=== PATIENT | male | born 1955 | race Caucasian/White ===

== ENCOUNTER 2017-09-22 15:06 | Inpatient (IN) | payer BC ==
[2017-09-22 16:33] LABS: ADD MAN DIFF? NO
[2017-09-22 16:34] LABS: BASO # 0.1 x10^3/uL (0.0-0.2); BASO % 1 % (0-3); EOS # 0.1 x10^3/uL (0.0-0.7); EOS % 2 % (0-3); HEMATOCRIT 37.8 % (39.0-53.0); LYMPH # 2.3 x10^3/uL (1.0-4.8); LYMPH % 39 % (24-48); MEAN CORPUSCULAR HEMOGLOBIN 37 pg (25-35); MEAN CORPUSCULAR HGB CONC 34 g/dL (31-37); MEAN CORPUSCULAR VOLUME 108 fL (79-100); MONO # 0.8 x10^3/uL (0.0-1.1); MONO % 14 % (0-9); NEUT # 2.6 x10^3uL (1.8-7.7); NEUT % 44 % (31-73); PLATELET COUNT 112 x10^3/uL (140-400); RED BLOOD COUNT 3.49 x10^6/uL (4.30-5.70); RED CELL DISTRIBUTION WIDTH 15.9 % (11.5-14.5); WHITE BLOOD COUNT 5.9 x10^3/uL (4.0-11.0)
[2017-09-22 16:49] LABS: ETHANOL < 10 mg/dL (0-10)
[2017-09-22 16:50] LABS: ALBUMIN 2.3 g/dL (3.4-5.0); ALBUMIN/GLOBULIN RATIO 0.4 (1.0-1.7); ALK PHOS 131 U/L (46-116); ALT (SGPT) 17 U/L (16-63); ANION GAP 10 (6-14); AST (SGOT) 60 U/L (15-37); BLOOD UREA NITROGEN 11 mg/dL (8-26); BUN/CREATININE RATIO 8 (6-20); CALCIUM 8.4 mg/dL (8.5-10.1); CARBON DIOXIDE 35 mmol/L (21-32); CHLORIDE 94 mmol/L (98-107); CREATININE 1.4 mg/dL (0.7-1.3); GFR 51.4; GLUCOSE 92 mg/dL (70-99); SODIUM 139 mmol/L (136-145); TOTAL BILIRUBIN 4.2 mg/dL (0.2-1.0); TOTAL PROTEIN 7.8 g/dL (6.4-8.2)
[2017-09-22 16:57] LABS: POTASSIUM 2.3 mmol/L (3.5-5.1)
[2017-09-22 16:58] LABS: AMMONIA < 10 mcmol/L (11-34)
[2017-09-22 17:02] LABS: INR 1.4 (0.8-1.1); PROTHROMBIN TIME PATIENT 16.5 SEC (11.7-14.0)
[2017-09-22 17:26] LABS: LACTIC ACID 4.7 mmol/L (0.4-2.0)
[2017-09-22] MEDS: SPIRONOLACTONE 25 MG TABLET PO (17:45)
[2017-09-22] MEDS: POTASSIUM CHLORIDE 20 MEQ TABLET.ER. PO ×2 (18:08→20:55)
[2017-09-22] MEDS: FUROSEMIDE 40 MG/4 ML VIAL. IVP (18:09)
[2017-09-22] MEDS: MORPHINE SULFATE 4 MG/ML DISP.SYRIN. IV ×2 (18:10→20:56)
[2017-09-23] MEDS: MORPHINE SULFATE 4 MG/ML DISP.SYRIN. IV ×3 (04:34→15:00)
[2017-09-23 05:15] LABS: ADD MAN DIFF? NO
[2017-09-23 05:37] LABS: BASO % 1 % (0-3); EOS # 0.3 x10^3/uL (0.0-0.7); EOS % 6 % (0-3); HEMATOCRIT 32.5 % (39.0-53.0); HEMOGLOBIN 10.9 g/dL (13.0-17.5); LYMPH # 2.1 x10^3/uL (1.0-4.8); LYMPH % 51 % (24-48); MEAN CORPUSCULAR HEMOGLOBIN 36 pg (25-35); MEAN CORPUSCULAR HGB CONC 34 g/dL (31-37); MEAN CORPUSCULAR VOLUME 108 fL (79-100); MONO # 0.6 x10^3/uL (0.0-1.1); MONO % 15 % (0-9); NEUT # 1.1 x10^3uL (1.8-7.7); NEUT % 28 % (31-73); PLATELET COUNT 80 x10^3/uL (140-400); RED BLOOD COUNT 3.01 x10^6/uL (4.30-5.70); RED CELL DISTRIBUTION WIDTH 16.1 % (11.5-14.5); WHITE BLOOD COUNT 4.2 x10^3/uL (4.0-11.0)
[2017-09-23 06:00] LABS: ALBUMIN 1.6 g/dL (3.4-5.0); ALBUMIN/GLOBULIN RATIO 0.4 (1.0-1.7); ALK PHOS 97 U/L (46-116); ALT (SGPT) 15 U/L (16-63); ANION GAP 5 (6-14); AST (SGOT) 43 U/L (15-37); BLOOD UREA NITROGEN 9 mg/dL (8-26); BUN/CREATININE RATIO 7 (6-20); CALCIUM 7.8 mg/dL (8.5-10.1); CARBON DIOXIDE 38 mmol/L (21-32); CHLORIDE 99 mmol/L (98-107); CREATININE 1.3 mg/dL (0.7-1.3); GFR 55.9; GLUCOSE 83 mg/dL (70-99); SODIUM 142 mmol/L (136-145); TOTAL BILIRUBIN 3.2 mg/dL (0.2-1.0)
[2017-09-23 06:02] LABS: POTASSIUM 2.8 mmol/L (3.5-5.1)
[2017-09-23 08:52] LABS: MAGNESIUM 1.9 mg/dL (1.8-2.4)
[2017-09-23] MEDS: POTASSIUM CHLORIDE 20 MEQ TABLET.ER. PO (09:01)
[2017-09-23] MEDS: FUROSEMIDE 40 MG/4 ML VIAL. IVP (09:02)
[2017-09-23] MEDS: SPIRONOLACTONE 25 MG TABLET PO (09:06)
[2017-09-23] MEDS ORDERED: LIDOCAINE WITH 8.4% SOD BICARB 3 ML DISP.SYRIN. IJ (11:20)
[2017-09-23] MEDS: LIDOCAINE WITH 8.4% SOD BICARB 3 ML DISP.SYRIN. IJ (11:42)
[2017-09-23] MEDS ORDERED: ALBUMIN HUMAN 25% 100 ML IV (12:09)
[2017-09-23] MEDS: ALBUMIN HUMAN 25% 100 ML IV (12:26)
[2017-09-23 13:33] LABS: BF CLARITY CLEAR; BF COLOR YELLOW; BF MON % 6 %; BF PMN % 17 %; BF RBC COUNT 100 /cmm; BF SOURCE ASCITES; BF WBC COUNT 116 /cmm
[2017-09-23 13:34] LABS: BF OTHER % 68 %
[2017-09-24 01:10] LABS: AFPT MARKER 4.4 ng/mL (0.0-8.3)
[2017-09-24] MEDS: MORPHINE SULFATE 4 MG/ML DISP.SYRIN. IV ×3 (06:35→23:49)
[2017-09-24 10:09] LABS: ADD MAN DIFF? NO
[2017-09-24 10:10] LABS: BASO # 0.1 x10^3/uL (0.0-0.2); BASO % 1 % (0-3); EOS # 0.2 x10^3/uL (0.0-0.7); EOS % 5 % (0-3); HEMOGLOBIN 10.9 g/dL (13.0-17.5); LYMPH # 1.6 x10^3/uL (1.0-4.8); LYMPH % 42 % (24-48); MEAN CORPUSCULAR HEMOGLOBIN 37 pg (25-35); MEAN CORPUSCULAR HGB CONC 34 g/dL (31-37); MEAN CORPUSCULAR VOLUME 110 fL (79-100); MONO # 0.5 x10^3/uL (0.0-1.1); MONO % 12 % (0-9); NEUT # 1.5 x10^3uL (1.8-7.7); NEUT % 39 % (31-73); PLATELET COUNT 72 x10^3/uL (140-400); RED BLOOD COUNT 2.92 x10^6/uL (4.30-5.70); WHITE BLOOD COUNT 3.8 x10^3/uL (4.0-11.0)
[2017-09-24] MEDS: FUROSEMIDE 40 MG/4 ML VIAL. IVP (10:26)
[2017-09-24] MEDS: SPIRONOLACTONE 25 MG TABLET PO (10:26)
[2017-09-24 10:29] LABS: ALBUMIN 1.9 g/dL (3.4-5.0); ALK PHOS 99 U/L (46-116); ALT (SGPT) 15 U/L (16-63); ANION GAP 4 (6-14); AST (SGOT) 41 U/L (15-37); BLOOD UREA NITROGEN 8 mg/dL (8-26); CALCIUM 7.5 mg/dL (8.5-10.1); CARBON DIOXIDE 38 mmol/L (21-32); CHLORIDE 99 mmol/L (98-107); CREATININE 1.1 mg/dL (0.7-1.3); DIRECT BILIRUBIN 1.8 mg/dL (0.0-0.2); GFR 67.8; GLUCOSE 97 mg/dL (70-99); MAGNESIUM 1.8 mg/dL (1.8-2.4); POTASSIUM 3.2 mmol/L (3.5-5.1); SODIUM 141 mmol/L (136-145); TOTAL BILIRUBIN 3.5 mg/dL (0.2-1.0); TOTAL PROTEIN 6.1 g/dL (6.4-8.2)
[2017-09-24] MEDS: POTASSIUM CHLORIDE 20 MEQ TABLET.ER. PO (11:50)
[2017-09-24 18:12] LABS: BODY FLUID GLUCOSE 95 mg/dL (.)
[2017-09-25] MEDS: SPIRONOLACTONE 25 MG TABLET PO (08:38)
[2017-09-25] MEDS: FUROSEMIDE 40 MG TABLET. PO (08:39)
[2017-09-25] MEDS: POTASSIUM CHLORIDE 20 MEQ TABLET.ER. PO ×3 (08:39→17:19)
[2017-09-25] MEDS: traMADol 50 MG TABLET PO ×2 (12:31→18:43)
[2017-09-26 06:14] LABS: ANION GAP 2 (6-14); BLOOD UREA NITROGEN 9 mg/dL (8-26); CALCIUM 7.3 mg/dL (8.5-10.1); CARBON DIOXIDE 35 mmol/L (21-32); CHLORIDE 104 mmol/L (98-107); CREATININE 1.2 mg/dL (0.7-1.3); GFR 61.3; GLUCOSE 94 mg/dL (70-99); POTASSIUM 3.6 mmol/L (3.5-5.1); SODIUM 141 mmol/L (136-145)
[2017-09-26] MEDS: FUROSEMIDE 40 MG TABLET. PO (08:41)
[2017-09-26] MEDS: POTASSIUM CHLORIDE 20 MEQ TABLET.ER. PO (08:41)
[2017-09-26] MEDS: SPIRONOLACTONE 25 MG TABLET PO (08:41)
== END 2017-09-26 12:57 | disposition home or self-care (01) | DRG 433 ==
LOC: 4 NORTH 15:06
PROC: 0W9G30Z Drainage of Peritoneal Cavity with Drainage Device, Percutaneous Approach (ICD-10-PCS; principal; 2017-09-23)
DX: K70.31 Alcoholic cirrhosis of liver with ascites (principal); E87.2 Acidosis; N17.9 Acute kidney failure, unspecified; D69.59 Other secondary thrombocytopenia; E88.09 Other disorders of plasma-protein metabolism, not elsewhere classified; D53.9 Nutritional anemia, unspecified; D73.1 Hypersplenism; E87.6 Hypokalemia; F10.11 Alcohol abuse, in remission; G47.00 Insomnia, unspecified; K80.20 Calculus of gallbladder without cholecystitis without obstruction; K82.8 Other specified diseases of gallbladder
CPT/HCPCS: 36415; 49083; 80048; 80053; 80076; 82105; 82140; 82945; 83605; 83735; 84157; 84443; 85025; 85610; 87040; 87071; 87075; 87205; 88112; 88305; 89050; 93976; G0480; J1940; J2270; P9046